=== PATIENT | female | born 1960 | race Caucasian/White ===

== ENCOUNTER 2016-07-26 07:16 | Day surgery (SDC) | payer MEDICARE, BC, MEDICAID ==
[~2016-07-26 07:16] MED LIST: ACETAMINOPHEN 1000MG/100 ML PREMIX IV ONE; CLINDAMYCIN 600MG/50ML PREMIX 50 ML IVPB ONE; FAMOTIDINE 20MG TABLET PO ONE; MECLIZINE 25 MG TABLET PO ONE; METOCLOPRAMIDE 10 MG TABLET PO ONE
--- NOTE | 2016-07-26 09:32 | History and Physical Report ---
CHIEF COMPLAINT/HISTORY OF CHIEF COMPLAINT: This patient with a very complicated history of lumbar spine pain and radicular pain had [place] spinal [place] The clinic was managing this since her initial evaluation although since the initial evaluation she complained of side effects related to the device although her side effect profile is quite complicated because of multiple gastrointestinal diseases and surgeries. Ultimately as per today she requested removal of the system. PAST MEDICAL HISTORY: Chronic bronchitis, gastrointestinal disease, renal disease with chronic failure, bladder dysfunction, peripheral edema, degenerative arthritis, and Crohn's disease ileitis with ileostomy bag. PAST SURGICAL HISTORY: Extensive. MEDICATIONS ON ADMISSION: List to be provided. ALLERGIES: PENICILLIN AND SULFA, EXTENSIVE. SOCIAL HISTORY: Smoking and caffeine. FAMILY HISTORY: Diabetes, coronary artery disease, hypertension, and cancer. SYSTEMS REVIEW: PHYSICAL EXAMINATION: Height is 5'6", weight is 120. Vital signs are not available. HEENT: Within normal limits. LUNGS: Clear. HEART: Regular rate and rhythm. ABDOMEN: Nontender. MUSCULOSKELETAL: Examination of the musculoskeletal system shows a pump in the right posterior gluteal margin, a bladder generator left posterior gluteal margin, the incisional site for the catheter placement midline. All incisions are intact. Ileostomy bag noted in the lower abdominal quadrant. ASSESSMENT: 1. INTRACTABLE LUMBAR RADICULITIS, ICD10 CODE M54.16 AND M54.17. 2. SPINAL OPIOID INFUSION SYSTEM HYDROMORPHONE SIDE EFFECTS. PLAN: Patient is here for removal of the system including indwelling catheter and pump on an outpatient basis although the patient has a very complicated history, does not tolerate oral antibiotics and needs home nursing care to deliver intravenous antibiotics. If we are unable to set this up before her discharge she will stay overnight and be discharged in the morning. FÉLIX JACKSON D.O. Date & Time JOB NUMBER: [id number] MTDD
[2016-07-26] MEDS ORDERED: RINGERS SOLUTION,LACTATED 1,000 ML IV PRN (10:36)
[2016-07-26] MEDS ORDERED: SUFENTANIL CITRATE 50 MCG/ML AMPUL IV ONE (14:00)
[2016-07-26] MEDS ORDERED: FENTANYL PF 100MCG/2ML VIAL IV ONE (14:00)
[2016-07-26] MEDS ORDERED: PROPOFOL 10 MG/ML VIAL IV ONE (14:00)
[2016-07-26] MEDS ORDERED: ONDANSETRON HCL IV 4 MG/2 ML VIAL IVP ONE (14:00)
[2016-07-26] MEDS ORDERED: LIDOCAINE 2% MDV (20MG/ML) 20ML VIAL IV ONE (14:00)
[2016-07-26] MEDS ORDERED: MIDAZOLAM HCL 2MG/2ML VIAL IV ONE (14:00)
[2016-07-26] MEDS ORDERED: CLINDAMYCIN 600MG/4 ML VIAL IV ONE (14:39)
[2016-07-26] MEDS ORDERED: LIDOCAINE 1% W/EPI 1:200,000 MPF 30ML SQ ONE (14:39)
[2016-07-26] MEDS ORDERED: BUPIVACAINE 0.5% W/EPI MPF 30 ML VIAL IVP ONE (14:39)
--- NOTE | 2016-07-26 15:24 | Operative Note - [place] ---
DATE OF SURGERY: 07/26/16 PREOPERATIVE DIAGNOSES: 1. INTRACTABLE, ICD-10 CODE = M54.16 AND M54.17. 2. SPINAL OPIOID INFUSION SYSTEM HYDROMORPHONE, SIDE-EFFECTS. OPERATION: 1. INCISION, SUBCUTANEOUS DISSECTION, AND REMOVAL OF INDWELLING SPINAL CATHETER. 2. INCISION, SUBCUTANEOUS DISSECTION, AND REMOVAL OF INDWELLING SPINAL OPIOID INFUSION SYSTEM, RIGHT POSTERIOR GLUTEAL MARGIN. SURGEON: FÉLIX JACKSON D.O. ANESTHESIA: LOCAL SEDATION. ANESTHESIA PROVIDER: STEPHANIE PRICE CRNA. INDICATION: This patient presents with a history of intractable lumbar radiculitis and a spinal opioid infusion system Hydromorphone, which was actually [place] out of state but maintained by us. Over the last number of months, in fact since her initial evaluation with this clinic, she complained of side-effects, which were felt to be related to the gastrointestinal system and a very complicated disease. Ultimately, she described the side-effects in part to the pump and requested its removal. PROCEDURE: Intravenous line, vital sign monitoring, IV sedation, prepped and draped sterile technique. Patient position prone. Sterile prep. Sterile technique. Under imaging, the incision under imaging for the spinal catheter was identified, marked, infiltrated, incision made, and subcutaneous dissection was conducted to the anchor. The anchor was identified and freed of suture. A pursestring was placed around the penetration for the catheter and spinal space. Catheter removed. Pursestring tightened stopping CSF leak. The catheter was removed intact. At the right posterior gluteal margin pump pouch, incision made, and subcutaneous dissection was conducted to the pump. The pump was then exteriorized. The pursestring suture and retaining sutures were removed. The pump and remaining catheter were removed intact. Antibiotic irrigation and Bovie for hemostasis at both sites. Both incisions were then closed Vicryl for fascia and a running subcuticular Vicryl for skin. Dermabond closure. She was transported to the Recovery Room stable. Because of a very complicated history and her request, she will stay overnight for observation and discharged in the morning. DISCHARGE INSTRUCTIONS: 1. The sites will remain clean and dry although showering is permitted because of the Dermabond. 2. Standard medications resumed including an antibiotic. She does not tolerate oral antibiotics and has to receive intravenous antibiotics and will receive them as a prophylactic measure to prevent infection. 3. She will be seen in the office 5-7 days to check the incisional sites. Until then, she is to keep her activity levels low. All other instructions provided, numbers to contact, problems given. FÉLIX JACKSON D.O. Date & Time cc: Dr. Steph Reyes JOB NUMBER: [id number] MTDD
== END 2016-07-26 11:15 | disposition left against medical advice (07) ==
LOC: SUR 07:16 → MEDSURG 10:33 → SUR 11:15
PROVIDERS: ATTEND Pain Medicine Interventional Pain Medicine
DX: T85.890A Other specified complication of nervous system prosthetic devices, implants and grafts, initial encounter (principal); M54.16 Radiculopathy, lumbar region; M54.17 Radiculopathy, lumbosacral region; K91.2 Postsurgical malabsorption, not elsewhere classified; R22.43 Localized swelling, mass and lump, lower limb, bilateral; M62.838 Other muscle spasm
CPT/HCPCS: 62365; 62355; 00300; J2405; J3010